=== PATIENT | female | born 1995 | race Caucasian/White ===

== ENCOUNTER 2018-07-12 01:59 | Emergency (ER) | payer OTHER ==
[2018-07-12] MEDS ORDERED: KETOROLAC TROMETHAMINE 60 MG/2 ML SDV IM ONE (04:34)
--- NOTE | 2018-07-12 04:36 | ER Document Report ---
ED Medical Screen (RME) - General Chief Complaint: Vaginal Pain Stated Complaint: VAGINAL PAIN Time Seen by Provider: 07/12/18 04:34 Notes: 23-year-old female, states that she has had sharp pain after intercourse and some vaginal bleeding, pain is worse on the right, she has an IUD in place. She states she had intercourse with someone who is "much bigger" and has been having pain since that time. Denies dizziness or passing out, denies nausea or vomiting, denies vaginal discharge or fever. TRAVEL OUTSIDE OF THE [place] IN LAST 30 DAYS: No - Related Data Allergies/Adverse Reactions: cephalexin [From Keflex] Allergy (Verified 07/12/18 02:03) Physical Exam - Abdominal Tenderness: Tender - Tender in the general lower abdomen, worse on the right Course - Re-evaluation Re-evalutation: I have greeted and performed a rapid initial assessment of this patient. A comprehensive ED assessment and evaluation of the patient, analysis of test results and completion of the medical decision making process will be conducted by additional ED providers.
[2018-07-12 05:27] LABS: ABSOLUTE BASOPHILS # (AUTO) 0.1 10^3/uL (0.0-0.2); ABSOLUTE EOSINOPHILS # (AUTO) 0.2 10^3/uL (0.0-0.6); ABSOLUTE LYMPHOCYTES (AUTO) 3.2 10^3/uL (0.5-4.7); ABSOLUTE MONOCYTES (AUTO) 0.6 10^3/uL (0.1-1.4); ABSOLUTE NEUT (AUTO) 6.2 10^3/uL (1.7-8.2); BASOPHILS % (AUTO) 0.8 % (0-2); EOSINOPHILS % (AUTO) 1.6 % (0-6); HEMATOCRIT 41.4 % (36.0-47.0); HEMOGLOBIN 14.2 g/dL (12.0-15.5); LYMPHOCYTES % (AUTO) 31.3 % (13-45); MEAN CORPUSCULAR HEMOGLOBIN 30.4 pg (27.0-33.4); MEAN CORPUSCULAR HGB CONC 34.2 g/dL (32.0-36.0); MEAN CORPUSCULAR VOLUME 89 fl (80-97); MONOCYTES % (AUTO) 5.6 % (3-13); PLATELET COUNT 260 10^3/uL (150-450); RED BLOOD COUNT 4.66 10^6/uL (3.72-5.28); RED CELL DISTRIBUTION WIDTH 14.9 % (11.5-14.0); SEGMENTED NEUTROPHILS % (AUTO) 60.7 % (42-78); TOTAL CELLS COUNTED % (AUTO) 100 %; WHITE BLOOD COUNT 10.2 10^3/uL (4.0-10.5)
[2018-07-12 05:34] LABS: APPEARANCE,URINE CLOUDY; BILIRUBIN,URINE NEGATIVE (NEGATIVE); GLUCOSE, URINE NEGATIVE (NEGATIVE); KETONES,URINE NEGATIVE (NEGATIVE); LEUKOCYTE ESTERASE,URINE LARGE (NEGATIVE); NITRITE,URINE NEGATIVE (NEGATIVE); PROTEIN,URINE 100 mg/dL (NEGATIVE); URINE SPECIFIC GRAVITY 1.031; UROBILINOGEN,URINE NEGATIVE mg/dL (<2.0)
[2018-07-12 05:36] LABS: COLOR,URINE DARK YELLOW
--- NOTE | 2018-07-12 07:44 | RADIOLOGY REPORT (SQ) ---
EXAM DESCRIPTION: US TRANSVAGINAL COMPLETED DATE/TME: 07/12/2018 04:34 CLINICAL HISTORY: 23 years Female, sharp abd pain, bleeding, IUD Comparison: None. Technique: Transvaginal. LIMITATIONS: None. FINDINGS: 7 x 3 x 5 cm uterus with separate endometrial cavities seen at the fundal aspect of the uterus transversely suggesting early Mullerian fusion variant; differential diagnosis includes bicornuate, septate, or arcuate uterus. IUD is at the right endometrial component of a divided endometrial cavity. IUD efficacy is compromised. SKIP HOIST OPERATOR consultation advised. Endometrial stripe thickness is 0.3 cm at each of bifid components. 3.6 cm right ovarian 2.4 cm left ovary are of normal size, shape, echotexture, and vascularity. No significant free fluid. IMPRESSION: 1. Mullerian fusion variant of the uterus; differential diagnosis includes bicornuate, septate, or arcuate uterus. 2. IUD is at the right endometrial component of a divided endometrial cavity. IUD efficacy is compromised. SKIP HOIST OPERATOR consultation advised.
[2018-07-12] MEDS ORDERED: ACETAMINOPHEN 325 MG TABLET PO ONE (09:25)
[2018-07-12] MEDS ORDERED: NITROFURANTOIN MONOHYD/M-CRYST 100 MG CAPSULE PO ONE (09:27)
--- NOTE | 2018-07-12 09:28 | ER Document Report ---
ED General - General Chief Complaint: Vaginal Pain Stated Complaint: VAGINAL PAIN Time Seen by Provider: 07/12/18 04:34 Notes: 23-year-old female, states that she has had sharp pain after intercourse and some vaginal bleeding, pain is worse on the right, she has an IUD in place. She states she had intercourse with someone who is "much bigger" and has been having pain since that time. Denies dizziness or passing out, denies nausea or vomiti ng, denies vaginal discharge or fever. TRAVEL OUTSIDE OF THE [place] IN LAST 30 DAYS: No - Related Data Allergies/Adverse Reactions: cephalexin [From Keflex] Allergy (Verified 07/12/18 02:03) Past Medical History - Social History Smoking Status: Unknown if Ever Smoked Family History: None Patient has suicidal ideation: No Patient has homicidal ideation: No Renal/ Medical History: Denies: Hx Peritoneal Dialysis Review of Systems - Review of Systems Constitutional: See HPI EENT: No symptoms reported Cardiovascular: See HPI Respiratory: See HPI Gastrointestinal: See HPI Genitourinary: See HPI Female Genitourinary: See HPI Musculoskeletal: No symptoms reported Skin: No symptoms reported Hematologic/Lymphatic: No symptoms reported Neurological/Psychological: No symptoms reported Physical Exam - Vital signs Vitals: Temp Pulse BP Pulse Ox 97.5 F 75 126/70 H 100 07/12/18 02:04 07/12/18 02:04 07/12/18 02:04 07/12/18 02:04 Course - Re-evaluation Re-evalutation: 07/12/18 19:53 Pelvic exam done and there is copious white discharge. No cervical motion tenderness. Residential Mortgage Manager was in the room, PCT. IUD strings were visualized. I asked Emily Lainez, BRAULIO to assist with procedure to remove IUD. She successfully did it. Wet mount was negative for bacterial vaginosis or concern for PID. Patient does have a UTI and a severe Keflex allergy so she will be treated with Macrobid. Also, she says her partner ejaculated in her after the IUD was dislodged so she requested emergency contraception. Education, precautions were discussed with patient prior to providing her with Plan B. Patient has an DIGITAL MARKETING LEAD and washed to follow-up with her in the next 24-48 hours. Patient's vital signs are within normal limits at time of discharge - Vital Signs Vital signs: Temp Pulse Resp BP Pulse Ox 98.0 F 63 16 115/82 100 07/12/18 11:46 07/12/18 11:46 07/12/18 11:46 07/12/18 11:46 07/12/18 11:46 - Laboratory Result Diagrams: 07/12/18 05:20 Laboratory results interpreted by me: 07/12/18 07/12/18 07/12/18 05:20 05:20 10:45 RDW 14.9 H Urine Protein 100 H Urine Blood MODERATE H Ur Leukocyte Esterase LARGE H Chlamydia DNA (PCR) DETECTED H Discharge - Discharge Clinical Impression: Pain associated with vaginal penetration, Remove/insert IUD, Emergency contraception Urinary tract infection Qualifiers: Urinary tract infection type: acute cystitis Hematuria presence: without hematuria Qualified Code(s): N30.00 - Acute cystitis without hematuria Condition: Good Disposition: HOME, SELF-CARE Instructions: Nitrofurantoin ([facility]), Urinary Tract Infection ([facility]) Additional Instructions: He was seen in the emergency department this morning for IUD removal, emergency contraception, and a urinary tract infection. The transvaginal ultrasound performed indicated that the IUD efficacy is compromised, therefore it was removed. There is very minimal bleeding. You can expect a little bit of bleeding and potential cramping over the next couple of days. Also, you were given plan B for emergency contraception as you are essentially unprotected dur ing intercourse. This medication is generally well-tolerated but you could potentially expect this nausea and a little bit of vomiting. You were treated empirically for chlamydia and given a azithromycin 1 g by mouth. The medication to treat empirically for gonorrhea is called gentamicin and because it was such a large amount of a shot we agreed it would be best to wait for the culture nurse to call if the results were indeed positive. You will receive a call from the culture nurse in 24 hours if any of them are positive. If it is the case you will need to follow-up and get treated for gonorrhea as you are protected against chlamydia. The wet mount test did not show any evidence of PID or bacterial vaginosis. For your urinary tract infection you have been prescribed Macrobid. You received your first dose here in the emergency department and I have prescribed you a 5-day supply that you can get filled at the pharmacy. You will take one 100 mg tablet 2 times per day for 5 days. If you start developing heavy vaginal bleeding have severe pelvic pain, pass out, become lightheaded or dizzy associated with bleeding please immediately return to emergency department. Please follow-up with your primary doctor in 24-48 hours or your DIGITAL MARKETING LEAD. Prescriptions: Nitrofurantoin/Nitrofuran Mac [Macrobid 100 mg Capsule] 1 tab PO BID #10 capsule
[2018-07-12] MEDS ORDERED: LEVONORGESTREL 1.5 MG TABLET (1 TAB/ER-USE) PO ONE (09:57)
[2018-07-12] MEDS ORDERED: GENTAMICIN SULFATE INJ 80 MG/2 ML VIAL IM ONE (10:48)
[2018-07-12] MEDS ORDERED: AZITHROMYCIN 250 MG TABLET PO ONE (10:48)
[2018-07-12 10:57] LABS: EPITHELIALS (WET MOUNT) 3+ EPITHELIALS SEEN; RBCS (WET MOUNT) NO RBCS SEEN; T.VAGINALIS (WET MOUNT) COULD NOT PERFORM; WBCS (WET MOUNT) 1+ WBCS SEEN; YEAST (WET MOUNT) NO YEAST SEEN
[2018-07-12 11:48] VITALS: BP 115/82
[2018-07-12 12:22] LABS: CHLAM PCR DETECTED (NOT DETECT); GON PCR NOT DETECTED (NOT DETECT)
== END 2018-07-12 11:50 | disposition home or self-care (01) ==
LOC: ER 01:59
DX: N30.00 Acute cystitis without hematuria (principal); T83.32XA Displacement of intrauterine contraceptive device, initial encounter; Y76.8 Miscellaneous obstetric and gynecological devices associated with adverse incidents, not elsewhere classified; N94.10 Unspecified dyspareunia; N93.9 Abnormal uterine and vaginal bleeding, unspecified; N89.8 Other specified noninflammatory disorders of vagina; Z30.432 Encounter for removal of intrauterine contraceptive device; Z88.1 Allergy status to other antibiotic agents
CPT/HCPCS: 99284; 96372; 36415; 87210; 85025; 81025; 81001; 87491; 87591; 76830; 93976; A9270; J1885; J8499